=== PATIENT | female | born 1950 | race African-American/Black ===

== ENCOUNTER 2017-12-19 09:35 | Outpatient (CLI) | payer MEDICARE, OTHER ==
--- NOTE | 2017-12-19 13:08 | RAD ---
AIR CONTRAST UPPER GI: History: Dysphagia. FINDINGS: Air contrast and single column barium evaluation shows a small sliding hiatal hernia. Large amount of gastroesophageal reflux. Diminished primary and secondary peristalsis. Non-compulsive tertiary type contractions are apparent. Stomach and duodenum are unremarkable. A 12 mm barium tablet traverse the esophagus without hold up. Fluoro time: 1.6 minutes IMPRESSION: Small hiatal hernia. Large amount of gastroesophageal reflux with presbyesophagus. POS: [facility]
== END 2017-12-19 09:36 | disposition home or self-care (01) ==
LOC: RAD 09:35
PROVIDERS: ATTEND Family Medicine
DX: R13.10 Dysphagia, unspecified (principal); K44.9 Diaphragmatic hernia without obstruction or gangrene; K21.9 Gastro-esophageal reflux disease without esophagitis
CPT/HCPCS: 74247